=== PATIENT | male | born 1970 | race Caucasian/White ===

== ENCOUNTER 2020-04-29 20:59 | Emergency (ER) | payer OTHER, SELFPAY ==
[2020-04-29 21:05] VITALS: BP 125/67; PULSE 118; RESP 20; TEMP 37.8; O2SAT 98; BMI 27.8
--- NOTE | 2020-04-29 21:20 | ED.GENADULT ---
HPI - General Adult General Chief complaint: Ear Stated complaint: infection,right ear swollen,fever,nausea Time Seen by Provider: 04/29/20 21:09 Source: patient Mode of arrival: Ambulatory Limitations: no limitations History of Present Illness HPI narrative: 49-year-old male here for evaluation of left ear pain. Despite the stated chief complaint listed in this note the patient's left ear has no one that is hurting him. He states that it is swelling and painful. He stated that he did feel a ?pop? in his right here earlier today however his left side that is causing him discomfort. He also states that he has some cuts on his hands after fishing that he think potentially became infected but though seems to have improved. He did have a sore throat a couple days ago otherwise no other associated symptoms. Also describes subjective fevers. Related Data Previous Rx's Medication Instructions Recorded amoxicillin-pot clavulanate 1 tab PO BID 7 Days #14 tab 04/29/20 [Augmentin] [id number] 3 drop EAR-LEFT TID 7 Days #10 ml 04/29/20 [Cortisporin-TC] Allergies Allergy/AdvReac Type Severity Reaction Status Date / Time No Known Drug Allergies Allergy Verified 04/29/20 21:11 Review of Systems Constitutional Constitutional: Reports fever(s) and Denies headache(s) Eyes Eyes: Denies change in vision ENT Ears, Nose, Mouth, and Throat: Denies dental pain, Denies vertigo, Denies dizziness, Reports otalgia, Denies headache(s), Denies neck pain, Denies sinus pain and Denies sore throat Cardiovascular Cardiovascular: Denies chest pain and Denies dyspnea Respiratory Respiratory: Denies dyspnea Gastrointestinal Gastrointestinal: Denies change in bowel habits and Denies nausea Musculoskeletal Musculoskeletal: Denies neck pain Integumentary/Breasts Skin/Breast: Denies rash Neurologic Neurologic: Denies vertigo, Denies dizziness and Denies headache(s) Hematologic/Lymphatic Hematologic/Lymphatic: Denies easy bleeding and Denies easy bruising Patient History Medical History Patient denies medical problems (Acute) Social History Smoking Status: Former smoker Smoking Status: Former smoker alcohol intake frequency: holidays/special occasions only Substance Use Type: does not use Exam Initial Vital Signs Initial Vital Signs: Vital Signs Temperature 100.1 F H 04/29/20 21:05 Pulse Rate 118 H 04/29/20 21:05 Respiratory Rate 20 04/29/20 21:05 Blood Pressure 125/67 04/29/20 21:05 Pulse Oximetry 98 04/29/20 21:05 Const General: cooperative and comfortable Limitations: mental status not altered HENOK Head: normal to inspection and normocephalic Ears: hearing grossly normal bilaterally, EAC's normal (Right), mastoids normal, EAC abnormal erythema on the left and EAC tenderness on the left, external ear abnormal auricular tenderness on the left and TM abnormal bulging on the right and on the left, erythematous on the left and with fluid behind the TM on the right and on the left Nose: external nose normal Mouth: oral mucosae normal Resp Effort & Inspection: normal respiratory effort Auscultation: clear to auscultation bilaterally Cardio Rate: tachycardic Rhythm: regular rhythm Skin Other: No rashes noted around the left ear. He did have a small area of crusting on the superior portion of the external ear on the left however there are no vesicles in this area. Neuro General: patient alert, patient awake and patient oriented x3 Extrem General: capillary refill normal Psych Appearance: grossly normal and well kempt Course Orders Ordered: Discontinued Medications Acetaminophen (Tylenol) 650 mg PO NOW ONE Stop: 04/29/20 21:22 Last Admin: 04/29/20 21:30 Dose: 650 mg Documented by: [email or web address] Amoxicillin/Clavulanate Potassium (Augmentin 875-125 Mg) 1 tab PO NOW ONE Stop: 04/29/20 21:22 Last Admin: 04/29/20 21:31 Dose: 1 tab Documented by: [email or web address] Vital Signs Vital signs: Vital Signs - 8 hr 04/29/20 21:05 04/29/20 21:30 Temperature 100.1 F H 100.1 F H Pulse Rate 118 H Respiratory Rate 20 Blood Pressure 125/67 Pulse Oximetry 98 Medical Decision Making MDM Narrative Medical decision making narrative: Patient has a history and physical exam consistent with a serous otitis media on the right and a purulent otitis media on the left. Also consistent with a left-sided otitis externa. On evaluation of the rest of his skin I do not see any other signs of be consistent with zoster. He denies any trauma to this area. His throat is unremarkable. Does have some lesions on his hand with a appear well without any signs of infection. I feel treating the patient for both a otitis media and externa is warranted given his situation. Was given antibiotics these. He was informed that if starts to develop a rash on the side of his face that would be consistent with shingles that he needs to be re-evaluated. Patient expressed understanding agreement. Discharge Plan Departure Patient Disposition: Home Clinical Impression: Otitis externa Qualifiers: Otitis externa type: unspecified type Chronicity: acute Laterality: left Qualified Code(s): H60.502 - Unspecified acute noninfective otitis externa, left ear Otitis media Qualifiers: Otitis media type: suppurative Chronicity: acute Laterality: left Recurrence: not specified as recurrent Spontaneous tympanic membrane rupture: without spontaneous rupture Qualified Code(s): H66.002 - Acute suppurative otitis media without spontaneous rupture of ear drum, left ear Discharge Date/Time: 04/29/20 21:37 Instructions: Middle Ear Infection, DI for Otitis Externa Activity Restrictions/Additional Instructions: Take the antibiotics as directed. You can take Tylenol or ibuprofen as needed for discomfort. Contact your primary provider for follow-up. If you develop a rash on your face that look like little blisters this would be concerning for shingles and you do need to be re-evaluated. Otherwise return to the emergency department for any other new or worsening symptoms Prescriptions: New amoxicillin-pot clavulanate [Augmentin] 875-125 mg tablet 1 tab PO BID 7 Days Qty: 14 RF: 0 Cortisporin-TC 3.3-3-10-0.5 mg/mL drops,suspension 3 drop EAR-LEFT TID 7 Days Qty: 10 RF: 0
[2020-04-29 21:30] VITALS: TEMP 37.8
[2020-04-29] MEDS: ACETAMINOPHEN 325 MG TABLET 650 MG PO (21:30)
[2020-04-29] MEDS: AMOXICILLIN/CLAV 875/125 MG 1 TAB PO (21:31)
== END 2020-04-29 21:37 | disposition home or self-care (01) ==
PROVIDERS: Emergency Provider Emergency Medicine
DX: H60.502 Unspecified acute noninfective otitis externa, left ear (principal); H66.002 Acute suppurative otitis media without spontaneous rupture of ear drum, left ear; L98.9 Disorder of the skin and subcutaneous tissue, unspecified
CPT/HCPCS: 99282; 99283